=== PATIENT | male | born 1985 | race Caucasian/White ===

== ENCOUNTER 2018-01-19 11:46 | Emergency (ER) | payer BC ==
[~2018-01-19] VITALS: Ht 182.9 cm; Wt 86.0 kg
[2018-01-19 12:25] VITALS: BP 133/71
== END 2018-01-19 16:31 | disposition left against medical advice (07) ==
LOC: ER 13:58
DX: Z53.21 Procedure and treatment not carried out due to patient leaving prior to being seen by health care provider (principal)